=== PATIENT | female | born 1955 | race American Indian/Alaskan Native ===

== ENCOUNTER 2017-05-21 18:57 | Emergency (ER) | payer OTHER ==
[2017-05-21 21:33] LABS: Basophils # (Auto) 0.1 K/mm3 (0.0-0.1); Basophils % (Auto) 1.6 % (0.0-1.8); Eosinophils # (Auto) 0.1 K/mm3 (0.0-0.4); Eosinophils % (Auto) 1.5 % (0.0-4.3); Hematocrit 41.7 % (30.3-42.9); Hemoglobin 13.7 gm/dl (10.1-14.3); Lymphocytes # (Auto) 2.6 K/mm3 (1.2-5.4); Lymphocytes % (Auto) 30.8 % (13.4-35.0); Mean Corpuscular HGB Conc 33 % (30-34); Mean Corpuscular Hemoglobin 28 pg (28-32); Mean Corpuscular Volume 86 fl (79-97); Monocytes # (Auto) 0.5 K/mm3 (0.0-0.8); Platelet Count 333 K/mm3 (140-440); Red Blood Count 4.87 M/mm3 (3.65-5.03); Red Cell Distribution Width 13.7 % (13.2-15.2)
[2017-05-21 21:57] LABS: Alanine Aminotransferase 15 units/L (7-56); Albumin 3.9 g/dL (3.9-5); BUN/Creatinine Ratio 19; Blood Urea Nitrogen 17 mg/dL (7-17); Calcium 9.4 mg/dL (8.4-10.2); Hemolysis Index 5
[2017-05-22] MEDS ORDERED: TORADOL IV ONE (02:23)
[2017-05-22] MEDS ORDERED: CLEOCIN 600 MG/50 mL 600 MG/50 ML BAG IV ONE (02:23)
--- NOTE | 2017-05-22 03:34 | Emergency Department Report ---
Abscess Boil HPI - HPI Chief Complaint: Skin/Abscess/Foreign Body Stated Complaint: CYST ON FACE Time Seen by Provider: 05/22/17 02:17 Duration: 1 Week Location: Other (right cheek) Severity: Moderate History: Yes Pain (6 out of 10), Yes Purulent Drainage (patient was seen in urgent care and had this last 2-3 days prior patient states that the swelling has not decreased not has the pain), No Fever, No Numbness, No Foreign Body, No Previous History, No Insect Bite HPI: Patient has been taking Bactrim twice a day with little relief of her pain or swelling. Patient denies nausea vomiting diarrhea headache fevers at this time. Home Medications: Previous Rx's Medication Instructions Recorded Last Taken Type Clindamycin [Clindamycin CAP] 300 mg PO Q8H #21 cap 05/22/17 Unknown Rx Ibuprofen [Motrin] 600 mg PO Q8H PRN #20 tablet 05/22/17 Unknown Rx traMADol [Ultram] 50 mg PO Q6HR PRN #12 tablet 05/22/17 Unknown Rx Allergies/Adverse Reactions: Allergies Allergy/AdvReac Type Severity Reaction Status Date / Time No Known Allergies Allergy Verified 05/21/17 20:26 ED Review of Systems ROS: Stated complaint: CYST ON FACE Other details as noted in HPI Comment: All other systems reviewed and negative ED Past Medical Hx - Past Medical History Hx Diabetes: Yes - Surgical History Past Surgical History?: Yes Additional Surgical History: eye - Social History Smoking Status: Never Smoker Substance Use Type: None - Medications Home Medications: Home Medications Medication Instructions Recorded Confirmed Last Taken Type Clindamycin [Clindamycin CAP] 300 mg PO Q8H #21 cap 05/22/17 Unknown Rx Ibuprofen [Motrin] 600 mg PO Q8H PRN #20 tablet 05/22/17 Unknown Rx traMADol [Ultram] 50 mg PO Q6HR PRN #12 tablet 05/22/17 Unknown Rx ED Abscess Boil Physical Exam - Exam General: Vital signs noted. No distress. Alert and acting appropriately. Lungs and heart exam are normal Front/Back of Body, Lg (Color): 1 - Right cheek shows an open draining abscess Size: 2 cm Exam: Yes Tenderness, Yes Surrounding Cellulites/Erythema (minimal), Yes Normal Neurologic Exam, Yes Normal Circulation, No Fluctuance, No Lymphangitis, No Crepitation, No Heart Murmur ED Course Vital Signs 05/21/17 05/22/17 20:26 02:09 Temperature 97.7 F Pulse Rate 82 Respiratory 20 Rate Blood Pressure 130/69 O2 Sat by Pulse 95 100 Oximetry Critical care attestation.: If time is entered above; I have spent that time in minutes in the direct care of this critically ill patient, excluding procedure time. ED Medical Decision Making - Lab Data Result diagrams: 05/21/17 21:12 05/21/17 21:12 - Medical Decision Making Patient will be changed from Bactrim to clindamycin. An IV doses been given here in the emergency department. Patient also will be given pain medicine ED Disposition Clinical Impression: Abscess Disposition: DC-01 TO HOME OR SELFCARE Is pt being admited?: No Does the pt Need Aspirin: No Condition: Fair Instructions: Abscess (ED) Prescriptions: Clindamycin [Clindamycin CAP] 300 mg PO Q8H #21 cap Ibuprofen [Motrin] 600 mg PO Q8H PRN #20 tablet PRN Reason: Pain traMADol [Ultram] 50 mg PO Q6HR PRN #12 tablet PRN Reason: Pain Referrals: JENNIFER EDWARDS MD [Primary Care Provider] - 3-5 Days
[2017-05-22 04:28] VITALS: BP 132/69
== END 2017-05-22 04:27 | disposition home or self-care (01) ==
LOC: ED 18:57
DX: L02.01 Cutaneous abscess of face (principal); E11.9 Type 2 diabetes mellitus without complications
CPT/HCPCS: 36415; 80053; 85025; 87040; 96365; 96375; 99283; J1885

== ENCOUNTER 2017-12-08 09:37 | Outpatient (CLI) | payer OTHER ==
--- NOTE | 2017-12-08 11:25 | Mammography Report ---
Screening mammogram: There is an intermediate density fibroglandular pattern with air generally symmetric distribution. Comparison is made to her prior exam of July 2016. There is a discrete nodule in the upper outer portion of each breast. The left breast nodule is circumscribed and remains unchanged. The right nodule has enlarged. The remainder the breast pattern is unchanged bilaterally. CAD used. Impression: Enlarging right nodule. Recommendation: Spot compression imaging of the right breast and right breast ultrasound. BI-RADS CATEGORY: 0 = Needs additional imaging evaluation ACR BI-RADS MAMMOGRAPHIC CODES: 0 = Needs additional imaging evaluation; 1 = Negative; 2 = Benign; 3 = Probably benign; 4 = Suspicious; 5 = Malignant; 6 = Known biopsy-proven malignancy COMMENT: 1. Dense breast tissue, i.e., adenosis, fibrocystic changes, etc., may obscure an underlying neoplasm. 2. Approximately 10% of cancers are not detected with mammography. 3. A negative mammography report should not delay biopsy if a clinically suspicious mass is present.
== END 2017-12-08 09:38 | disposition home or self-care (01) ==
LOC: SPVWC 09:37
PROVIDERS: ATTEND Internal Medicine
DX: Z12.31 Encounter for screening mammogram for malignant neoplasm of breast (principal)
CPT/HCPCS: 77067